=== PATIENT | female | born 1995 | race Caucasian/White ===

== ENCOUNTER 2024-12-21 19:46 | Inpatient (IN) | payer MEDICAID ==
[~2024-12-21] VITALS: Ht 167.6 cm; Wt 67.3 kg
[2024-12-21] MEDS ORDERED: LITH300T45 PO (20:14)
[2024-12-21] MEDS: LORazepam 2 MG/ML VIAL IM ONE (20:17)
[2024-12-21 20:40] LABS: COVID AG,FIA SOURCE NASAL SWAB; SARS-COV2 (COVID) ANTIGEN,FIA Negative (Negative)
[2024-12-21 20:52] LABS: APPEARANCE,URINE HAZY (CLEAR); GLUCOSE, URINE (UA) NEGATIVE (NEGATIVE); LEUKOCYTE ESTERASE ,URINE NEGATIVE (NEGATIVE); NITRATE,URINE NEGATIVE (NEGATIVE); OCCULT BLOOD,URINE NEGATIVE (NEGATIVE); PH,URINE DRUG SCREEN 6.5 (5.0-8.0); SPECIFIC GRAVITIY, URINE 1.001 (1.003-1.030)
[2024-12-21 20:59] LABS: AMPHET/METH SCREEN,URINE NEGATIVE (NEGATIVE); BARBITURATE SCREEN, URINE NEGATIVE (NEGATIVE); CANNABINOID SCREEN,URINE NEGATIVE (NEGATIVE); COCAINE SCREEN,URINE NEGATIVE (NEGATIVE); METHADONE SCREEN, URINE NEGATIVE (NEGATIVE)
[2024-12-21 21:02] LABS: ALCOHOL, URINE DRUG SCREEN NEGATIVE (NEGATIVE)
[2024-12-21 21:56] LABS: PLATELET COUNT (AUTO) 226 K/uL (150-450); RED BLOOD CELL COUNT(AUTO) 4.33 MIL/uL (4.00-5.20); RED CELL DISTRIBUTION WIDTH 19.2 % (11.5-14.5); WHITE BLOOD COUNT (AUTO) 6.0 K/uL (4.5-11.0)
[2024-12-21 22:06] LABS: CALCIUM, TOTAL 8.3 mg/dL (8.8-10.5); CREATININE 0.38 mg/dL (0.60-1.30); GLOMERULAR FILTR. RATE CALC > 60 mL/min (>60); GLUCOSE,RANDOM 87 mg/dL (70-110); SODIUM SERUM 135 mmol/L (136-145); UREA NITROGEN, BLOOD 4 mg/dL (7-18)
[2024-12-21 22:11] LABS: ASPARTATE AMINOTRANSFERASE 33 U/L (15-37); TOTAL PROTEIN, SERUM 7.2 g/dL (6.4-8.2)
[2024-12-21 22:17] LABS: ALCOHOL, BLOOD (SERUM) < 3 mg/dL (0-10)
[2024-12-21 22:20] LABS: RBC MORPHOLOGY COMMENT ABNORMAL RBC MORPH
[2024-12-21] MEDS: BACITRACIN 0.9 GM PACKET OINTMENT TP ONE (23:07)
[2024-12-21] MEDS: PERTUSS(ACELL),DIPH,TET/PF 0.5 ML SYRINGE [ADULT] IM. ONE (23:07)
[2024-12-22 01:00] VITALS: O2SAT 98
[2024-12-22] MEDS: INFLUENZA VIRUS VACCINE TVS (6MO+) 2025-26/PF 45 MCG/0.5 ML SYRINGE IM. ONE (03:15)
[2024-12-22 03:17] VITALS: BP 122/59; PULSE 69; RESP 14; TEMP 97.6; O2SAT 99
[2024-12-22 08:06] VITALS: RESP 17
[2024-12-22] MEDS ORDERED: DOCUSATE SODIUM 100 MG CAPSULE PO PRN (10:00)
[2024-12-22] MEDS ORDERED: ACETAMINOPHEN 325 MG TABLET PO PRN (10:00)
[2024-12-22] MEDS ORDERED: MAGNESIUM HYDROXIDE SUSPENSION 30 ML UDCUP PO PRN (10:00)
[2024-12-22] MEDS ORDERED: ONDANSETRON 4 MG TABLET PO PRN (10:00)
[2024-12-22] MEDS ORDERED: PETROLATUM,WHITE 28 GM JELLY TP PRN (10:00)
[2024-12-22] MEDS ORDERED: BACITRACIN 28 GM OINTMENT TP PRN (10:00)
[2024-12-22] MEDS ORDERED: OMEPRAZOLE 20 MG CAPSULE PO PRN (10:00)
[2024-12-22] MEDS ORDERED: LOPERAMIDE HCL 2 MG CAPSULE PO PRN (10:00)
[2024-12-22] MEDS ORDERED: MAG HYDROX/ALUMINUM HYD/SIMETH ES 30 ML SUSPENSION UDCUP PO PRN (10:00)
[2024-12-22] MEDS ORDERED: IBUPROFEN 600 MG TABLET PO PRN (10:00)
[2024-12-22] MEDS ORDERED: BENZOCAINE/MENTHOL [CEPACOL] LOZENGE PO PRN (10:00)
[2024-12-22] MEDS: LITHIUM CARBONATE 300 MG ER TABLET PO SCH (10:16)
[2024-12-22] MEDS: FERROUS SULFATE 325 MG EC TABLET PO SCH (12:12)
[2024-12-22 20:10] VITALS: RESP 17
[2024-12-23 08:15] VITALS: RESP 16
[2024-12-23 08:17] VITALS: RESP 16
[2024-12-23 08:19] VITALS: BP 140/82; PULSE 98; RESP 16; TEMP 97.5; O2SAT 99
[2024-12-23 09:42] LABS: CALCIUM, TOTAL 8.6 mg/dL (8.8-10.5); CREATININE 0.64 mg/dL (0.60-1.30); GLOMERULAR FILTR. RATE CALC > 60 mL/min (>60); SODIUM SERUM 139 mmol/L (136-145); UREA NITROGEN, BLOOD 7 mg/dL (7-18)
[2024-12-23 10:16] LABS: ASPARTATE AMINOTRANSFERASE 30 U/L (15-37); CHOL/HDL RATIO 2.6 (3.9-5.7); GLUCOSE,RANDOM 71 mg/dL (70-110); LDL CHOL (CALC.) 74 mg/dL (0-130); TOTAL PROTEIN, SERUM 7.8 g/dL (6.4-8.2)
[2024-12-23] MEDS: ALBUTEROL SULFATE HFA 90 MCG/PUFF 8 GM INHALER IH PRN (17:46)
[2024-12-23 20:01] VITALS: BP 118/79; PULSE 85; RESP 18; TEMP 98.2; O2SAT 99
[2024-12-23] MEDS: ZOLPIDEM TARTRATE 10 MG TABLET PO PRN (21:26)
[2024-12-24 08:11] VITALS: BP 111/65; PULSE 80; RESP 16; TEMP 97.5; O2SAT 100
[2024-12-24] MEDS ORDERED: QUET25TA36 PO (10:50)
[2024-12-24] MEDS ORDERED: LITH300T45 PO (10:50)
== END 2024-12-24 16:09 | disposition home or self-care (01) | DRG 753 ==
LOC: EDUNIT# 19:46 → EMS 19:54 → B3A 12-22 01:06
PROVIDERS: ADMIT Psychiatry & Neurology Psychiatry; ATTEND Psychiatry & Neurology Psychiatry
PROC: GZHZZZZ Group Psychotherapy (ICD-10-PCS; principal; 2024-12-22)
DX: F31.13 Bipolar disorder, current episode manic without psychotic features, severe (principal); Z78.1 Physical restraint status; F41.9 Anxiety disorder, unspecified; G47.00 Insomnia, unspecified; S61.411A Laceration without foreign body of right hand, initial encounter; X58.XXXA Exposure to other specified factors, initial encounter; K59.00 Constipation, unspecified; Z20.822 Contact with and (suspected) exposure to COVID-19; Z91.148 Patient's other noncompliance with medication regimen for other reason; Z91.51 Personal history of suicidal behavior; Y93.89 Activity, other specified; Y92.89 Other specified places as the place of occurrence of the external cause; Y99.8 Other external cause status
CPT/HCPCS: 80048; 80053; 80061; 80076; 80307; 81003; 83036; 84436; 84443; 84703; 85025; 90686; 99285; G0480; J1200; J1630; J2060; J3535